=== PATIENT | female | born 1990 | race Two or more races ===

== ENCOUNTER 2025-04-02 08:20 | Emergency (ER) | payer OTHER ==
[~2025-04-02] VITALS: Ht 167.6 cm; Wt 65.8 kg
[2025-04-02] MEDS ORDERED: TRAMADOL HCL 50 MG TABLET PO ONE (09:00)
[2025-04-02 09:41] LABS: BASO % 0.4 % (0.1-1.2); EOS # 0.17 (0.04-0.54); EOS % 1.8 % (0.7-7.0); LYMPH # 2.62 (1.18-3.74); LYMPH % 28.0 % (19.3-53.1); MEAN PLATELET VOLUME 8.40 fl (9.4-12.4); MONO # 0.46 (0.24-0.82); MONO % 4.9 % (4.7-12.5); NEUT # 6.06 (1.56-6.13); NEUT % 64.7 % (34.0-71.1); RED CELL DISTRIBUTION WIDTH 12.0 % (11.6-14.4)
[2025-04-02 10:12] LABS: ALT/SGPT 70 U/L (12-78); AST/SGOT 27 U/L (15-37); BILIRUBIN TOTAL 0.38 mg/dL (0.3-1.2); BUN CREA RATIO 17 (7.0-25.0); CREATININE SERUM 0.63 mg/dL (0.55-1.02); GFR 106.92; GLOBULINA 3.5 G/DL (2.4-3.5); GLUCOSE FASTING 95 mg/dL (65-100); OSMOLALITY SERUM 280 MOSM/KG (275-295)
[2025-04-02 10:29] LABS: HCG QUANTITATIVE < 1 mUI/mL (1-3)
[2025-04-02 11:02] LABS: COVID-19 AG NEGATIVE (NEGATIVE)
[2025-04-02] MEDS ORDERED: BUTALB-ACETAMI1 EAC2 PO (11:06)
== END 2025-04-02 12:10 | disposition home or self-care (01) ==
LOC: ER 08:20
PROVIDERS: General Practice
DX: G43.909 Migraine, unspecified, not intractable, without status migrainosus (principal); Z20.822 Contact with and (suspected) exposure to COVID-19